=== PATIENT | female | born 2000 | race Hispanic/Latino ===

== ENCOUNTER 2022-05-09 09:17 | Outpatient (CLI) | payer OTHER | END 2022-05-09 09:18 | disposition home or self-care (01) | LOC: CSHULT 09:17 | PROVIDERS: ATTEND Family Medicine | DX: O09.892 Supervision of other high risk pregnancies, second trimester (principal); Z3A.20 20 weeks gestation of pregnancy | CPT/HCPCS: 76805 ==

== ENCOUNTER 2022-08-24 12:25 | Day surgery (SDC) | payer OTHER ==
[2022-08-24 13:00] VITALS: BMI 33.0
== END 2022-08-24 16:10 | disposition home or self-care (01) ==
LOC: CSHLD/OP 12:25
PROVIDERS: ATTEND Family Medicine
DX: Z36.89 Encounter for other specified antenatal screening (principal); Z3A.34 34 weeks gestation of pregnancy
CPT/HCPCS: 59025; 76815; 99282

== ENCOUNTER 2022-09-12 09:50 | Inpatient (IN) | payer BC, OTHER ==
[~2022-09-12 09:50] MED LIST: Bupivacaine 0.25% HCL 30 ML VIAL ONE
[2022-09-12 10:17] VITALS: BMI 33.0
[2022-09-12 10:50] LABS: Fetal Membranes Rupture RUPTURE DETECTED (No Rupture)
[2022-09-12] MEDS ORDERED: Promethazine HCl 25 MG/ML VIAL IM PRN ×2 (11:16→14:05)
[2022-09-12] MEDS ORDERED: Butorphanol Tartrate 1 MG/ML VIAL SLOW IVP PRN (11:16)
[2022-09-12] MEDS ORDERED: Ondansetron PF 4 MG/2 ML Vial IVP PRN ×3 (11:16→20:23)
[2022-09-12] MEDS ORDERED: hydrALAZINE 20 MG/ML VIAL SLOW IVP PRN ×2 (11:16→20:23)
[2022-09-12] MEDS ORDERED: Lidocaine 1% (PF) 30 ML VIAL SC PRN (11:16)
[2022-09-12] MEDS ORDERED: HYDROcodone/Acetaminophen 5/325 mg Tablet PO PRN ×2 (11:16→20:23)
[2022-09-12] MEDS ORDERED: Diphenoxylate HCl/Atropine Tablet PO PRN (11:16)
[2022-09-12] MEDS ORDERED: Ibuprofen 800 MG TAB PO PRN (11:16)
[2022-09-12] MEDS ORDERED: Methylergonovine 0.2 MG/ML VIAL IM PRN (11:16)
[2022-09-12] MEDS ORDERED: Acetaminophen 500 MG TAB PO PRN (11:16)
[2022-09-12] MEDS ORDERED: Misoprostol 200 MCG TAB PR PRN (11:16)
[2022-09-12] MEDS ORDERED: Carboprost 250 MCG/ML AMP IM PRN (11:16)
[2022-09-12] MEDS ORDERED: Penicillin G Potassium 5 MILL.UNITS in Sodium Chloride 0.9% 100 ML IVPB SCH (11:30)
[2022-09-12] MEDS ORDERED: NS w/ Oxytocin 30 units 500 ML IV SCH ×2 (11:30)
[2022-09-12 11:39] LABS: Hemoglobin 12.3 g/dL (12.0-15.5); Mean Corpuscular HGB CONC 33.4 g/dL (32.0-36.0); Mean Corpuscular Hemoglobin 25.8 pg (27.0-33.0); Mean Corpuscular Volume 77.1 fl (81.6-98.3); Mean Platelet Volume 9.7 fl (7.4-10.4); Platelet Count 372 10x3/uL (150-450); RBC Distribution Width 13.3 % (11.5-14.5); Red Blood Cell (RBC) Count 4.77 10x6/uL (3.90-5.03); White Blood Cell (WBC) Count 10.6 10x3/uL (3.5-10.5)
[2022-09-12] MEDS: Lactated Ringer's 1,000 ML IV SCH ×2 (11:49→23:37)
[2022-09-12 12:21] LABS: Syphilis Antibody Nonreactive (Nonreactive); Syphilis Antibody Index 0.02 S/CO (<1.00 Non-Reactive)
[2022-09-12 12:23] LABS: HBSAg Index 0.18 S/CO (0-0.99); Hep B Surf Ag Non-Reactive S/CO (NonReactive)
[2022-09-12 12:49] LABS: SARS-CoV-2 NAA Rapid Test Not Detected (NotDetected)
[2022-09-12] MEDS ORDERED: Fentanyl 2 mcg/Bup 0.1% Cadd 100 ML ONE (13:14)
[2022-09-12] MEDS ORDERED: diphenhydrAMINE 50 MG/ML VIAL IVP PRN (14:05)
[2022-09-12] MEDS ORDERED: ePHEDrine Sulfate 50 MG/10 ML VIAL SLOW IVP PRN (14:05)
[2022-09-12] MEDS ORDERED: Naloxone HCl 0.4 mg/ml Vial IVP PRN ×2 (14:05)
[2022-09-12] MEDS ORDERED: Acetaminophen 325 MG TAB PO PRN (14:05)
[2022-09-12] MEDS ORDERED: Moisturizing Cream (Eucerin) 113 GM JAR TOP PRN (14:05)
[2022-09-12] MEDS ORDERED: Lactated Ringer's 500 ML IV PRN (14:05)
[2022-09-12] MEDS ORDERED: Communication Order-Pharmacy FS SCH (14:15)
[2022-09-12] MEDS ORDERED: Fentanyl 2 mcg/Bupivacaine 0.1% Cassette 100 ML EPIDURAL SCH (14:15)
[2022-09-12] MEDS: Penicillin G 2.5 MILL.units 2.5 MILL.UNITS in Premix Bag 1 BAG IVPB SCH ×2 (15:03→23:40)
[2022-09-12] MEDS ORDERED: Lanolin Ointment 7 GM TUBE TOP PRN (20:23)
[2022-09-12] MEDS ORDERED: Benzocaine-Menthol 82.5 ML CAN TOP PRN (20:23)
[2022-09-12] MEDS ORDERED: Milk Of Magnesia 30 ML UDCUP PO PRN (20:23)
[2022-09-12] MEDS ORDERED: Bisacodyl 10 MG SUPP PR PRN (20:23)
[2022-09-12] MEDS ORDERED: Boostrix 0.5 ML (Tdap) VIAL (>/=7 yrs of age) IM ONE (20:23)
[2022-09-12] MEDS ORDERED: diphenhydrAMINE 25 MG CAP PO PRN (20:23)
[2022-09-12] MEDS ORDERED: Ferrous Sulfate 325 MG TAB PO SCH (20:45)
[2022-09-12] MEDS: Docusate 100 MG CAP PO SCH (21:56)
[2022-09-12] MEDS: Ibuprofen 800 MG TAB PO SCH (21:56)
[2022-09-13] MEDS: Ibuprofen 800 MG TAB PO SCH ×2 (05:54→14:25)
[2022-09-13] MEDS: Ferrous Sulfate 325 MG TAB PO SCH ×2 (07:20→16:44)
[2022-09-13] MEDS: Docusate 100 MG CAP PO SCH (08:18)
[2022-09-13] MEDS ORDERED: Prenatal Vitamin 1 TAB PO SCH (09:00)
[2022-09-13 17:59] VITALS: BP 102/57; TEMP 98.1
== END 2022-09-13 19:10 | disposition home or self-care (01) | DRG 807 ==
LOC: CSHLD/OP 09:50 → CSHLD 11:21 → CSHPP 19:50
PROVIDERS: ADMIT Family Medicine; ATTEND Family Medicine
PROC: 10E0XZZ Delivery of Products of Conception, External Approach (ICD-10-PCS; principal; 2022-09-12)
DX: O99.824 Streptococcus B carrier state complicating childbirth (principal); Z37.0 Single live birth; Z3A.38 38 weeks gestation of pregnancy; Z20.822 Contact with and (suspected) exposure to COVID-19
CPT/HCPCS: 36415; 51702; 84112; 85027; 86780; 86850; 86900; 86901; 87340; 99285; J2540; J2590; J3490; J7120; S0020; U0002

== ENCOUNTER 2023-11-06 10:41 | Inpatient (IN) | payer MEDICAID ==
[2023-11-06 11:10] VITALS: BMI 35.3
[2023-11-06] MEDS ORDERED: Acetaminophen 500 MG TAB PO PRN (11:48)
[2023-11-06] MEDS ORDERED: Ondansetron PF 4 MG/2 ML Vial IVP PRN ×3 (11:48→18:00)
[2023-11-06] MEDS ORDERED: hydrALAZINE 20 MG/ML VIAL SLOW IVP PRN ×2 (11:48→18:00)
[2023-11-06] MEDS ORDERED: Promethazine HCl 25 MG/ML VIAL IM PRN ×3 (11:48→18:00)
[2023-11-06] MEDS ORDERED: Lidocaine 1% (PF) 30 ML VIAL SC PRN (11:48)
[2023-11-06] MEDS ORDERED: Tranexamic Acid 1,000 MG/10 ML VIAL IVP PRN (11:48)
[2023-11-06] MEDS ORDERED: Carboprost 250 MCG/ML AMP IM PRN (11:48)
[2023-11-06] MEDS ORDERED: Misoprostol 200 MCG TAB PR PRN (11:48)
[2023-11-06] MEDS ORDERED: fentaNYL 50 mcg/mL 1 mL Vial SLOW IVP PRN (11:48)
[2023-11-06] MEDS ORDERED: Methylergonovine 0.2 MG/ML VIAL IM PRN (11:48)
[2023-11-06] MEDS ORDERED: HYDROcodone/Acetaminophen 5/325 mg Tablet PO PRN ×2 (11:48→18:00)
[2023-11-06] MEDS ORDERED: Ibuprofen 800 MG TAB PO PRN (11:48)
[2023-11-06] MEDS ORDERED: Diphenoxylate HCl/Atropine Tablet PO PRN (11:48)
[2023-11-06] MEDS ORDERED: Oxytocin 30 units/NS 500 ML 500 ML IV SCH ×2 (12:00)
[2023-11-06 12:06] LABS: Hematocrit 32.8 % (34.9-44.5); Hemoglobin 10.5 g/dL (12.0-15.5); Mean Corpuscular Hemoglobin 23.3 pg (27.0-33.0); Mean Corpuscular Volume 72.9 fl (81.6-98.3); Mean Platelet Volume 10.2 fl (7.4-10.4); Platelet Count 352 10x3/uL (150-450); RBC Distribution Width 15.5 % (11.5-14.5); White Blood Cell (WBC) Count 10.1 10x3/uL (3.5-10.5)
[2023-11-06] MEDS: Oxytocin 30 units/NS 500 ML 500 ML IV SCH (12:35)
[2023-11-06] MEDS: Lactated Ringer's 1,000 ML IV SCH (12:37)
[2023-11-06 12:43] LABS: Hep B Surf Ag - L&D Non-Reactive S/CO (NonReactive)
[2023-11-06 12:44] LABS: Syphilis Antibody Nonreactive (Nonreactive); Syphilis Antibody Index 0.04 S/CO (<1.00 Non-Reactive)
[2023-11-06] MEDS: fentaNYL/Ropivacaine Epidural 100 ML ONE (14:05)
[2023-11-06] MEDS ORDERED: Naloxone HCl 0.4 mg/ml Vial IVP PRN ×2 (14:24)
[2023-11-06] MEDS ORDERED: ePHEDrine Sulfate 50 MG/10 ML VIAL SLOW IVP PRN (14:24)
[2023-11-06] MEDS ORDERED: Moisturizing Cream (Eucerin) 113 GM JAR TOP PRN (14:24)
[2023-11-06] MEDS ORDERED: Acetaminophen 325 MG TAB PO PRN (14:24)
[2023-11-06] MEDS ORDERED: diphenhydrAMINE 50 MG/ML VIAL IVP PRN (14:24)
[2023-11-06] MEDS ORDERED: Lactated Ringer's 500 ML IV PRN (14:24)
[2023-11-06] MEDS ORDERED: Communication Order-Pharmacy FS SCH (14:30)
[2023-11-06] MEDS ORDERED: fentaNYL 2 mcg/Ropivacaine 0.2% Epidural 100 ML CADD EPIDURAL SCH (14:30)
[2023-11-06] MEDS ORDERED: Benzocaine-Menthol 82.5 ML CAN TOP PRN (18:00)
[2023-11-06] MEDS ORDERED: Bisacodyl 10 MG SUPP PR PRN (18:00)
[2023-11-06] MEDS ORDERED: diphenhydrAMINE 25 MG CAP PO PRN (18:00)
[2023-11-06] MEDS ORDERED: Milk Of Magnesia 30 ML UDCUP PO PRN (18:00)
[2023-11-06] MEDS ORDERED: Lanolin Ointment 7 GM TUBE TOP PRN (18:00)
[2023-11-06] MEDS: Docusate 100 MG CAP PO SCH (21:17)
[2023-11-06] MEDS: Ibuprofen 800 MG TAB PO SCH (21:17)
[2023-11-07 07:25] VITALS: BP 113/65; TEMP 97.9
[2023-11-07] MEDS: Boostrix 0.5 ML (Tdap) VIAL (>/=7 yrs of age) IM ONE (07:38)
[2023-11-07] MEDS: Ferrous Sulfate 325 MG TAB PO SCH (07:38)
[2023-11-07] MEDS: Prenatal Vitamin 1 TAB PO SCH (07:54)
== END 2023-11-07 20:00 | disposition home or self-care (01) | DRG 807 ==
LOC: CSHLD 10:41 → CSHPP 18:19
PROVIDERS: ADMIT Family Medicine; ATTEND Family Medicine
PROC: 10E0XZZ Delivery of Products of Conception, External Approach (ICD-10-PCS; principal; 2023-11-06)
PROC: 10907ZC Drainage of Amniotic Fluid, Therapeutic from Products of Conception, Via Natural or Artificial Opening (ICD-10-PCS; 2023-11-06)
DX: O36.5930 Maternal care for other known or suspected poor fetal growth, third trimester, not applicable or unspecified (principal); Z37.0 Single live birth; Z3A.38 38 weeks gestation of pregnancy; O69.81X0 Labor and delivery complicated by cord around neck, without compression, not applicable or unspecified; Z79.82 Long term (current) use of aspirin
CPT/HCPCS: 85027; 86780; 86850; 86900; 86901; 87340; J2590; J7120